=== PATIENT | female | born 1970 | race Caucasian/White ===

== ENCOUNTER 2017-06-24 23:26 | Emergency (ER) | payer SELFPAY ==
[2017-06-25 00:17] VITALS: TEMP 97.3; BMI 29.2
--- NOTE | 2017-06-25 03:55 | PDOC ---
History of Present Illness - History of Present Illness Initial Comments: 06/25/17 04:09 Patient is a 47 F (1 , 2 miscarriages), with no significant PMHx, who presents to the ED for headache 1 week. Patient states that she had a pounding headache for 1 week. Yesterday she reports worsening headache - concentrated on the front and right side. She also reports dizziness, and says she passed out in amish. She also reports that she hasn't had much of an appetite yesterday. She states she is currently menstruating. She denies fever. Allergies: penicillin PCP: hasn't seen a doctor for 2 years <Fransisca Camargo - Last Filed: 06/25/17 04:09> <Marion Cervantes - Last Filed: 06/25/17 07:14> - General Chief Complaint: Headache Stated Complaint: HEADACHE Time Seen by Provider: 06/25/17 02:01 Past History <Fransisca Camargo - Last Filed: 06/25/17 04:09> - Past Medical History COPD: No - Surgical History Abdominal Surgery: Yes - Immunization History Immunization Up to Date: Yes - Suicide/Smoking/Psychosocial Hx Smoking History: Never smoked Have you smoked in the past 12 months: No Information on smoking cessation initiated: No Hx Alcohol Use: No Drug/Substance Use Hx: No Substance Use Type: None <Marion Cervantes - Last Filed: 06/25/17 07:14> - Past Medical History Allergies/Adverse Reactions: Allergies Allergy/AdvReac Type Severity Reaction Status Date / Time Penicillins Allergy Intermediate Difficulty Verified 06/25/17 00:16 Breathing Home Medications: Ambulatory Orders NK [No Known Home Medication] 11/17/15 Review of Systems - Review of Systems Comments:: 06/25/17 04:10 GENERAL/CONSTITUTIONAL: No fever or chills. No weakness. HEAD, EYES, EARS, NOSE AND THROAT: No change in vision. No ear pain or discharge. No sore throat. CARDIOVASCULAR: No chest pain or shortness of breath. RESPIRATORY: No cough, wheezing, or hemoptysis. GASTROINTESTINAL: No nausea, vomiting, diarrhea or constipation. GENITOURINARY: No dysuria, frequency, or change in urination. MUSCULOSKELETAL: No joint or muscle swelling or pain. No neck or back pain. SKIN: No rash NEUROLOGIC: +headache, +vertigo, +loss of consciousness, no change in strength/ sensation. ENDOCRINE: No increased thirst. No abnormal weight change.+decreased appetite. HEMATOLOGIC/LYMPHATIC: No anemia, easy bleeding, or history of blood clots. ALLERGIC/IMMUNOLOGIC: No hives or skin allergy. <Fransisca Camargo - Last Filed: 06/25/17 04:09> *Physical Exam - Vital Signs Last Vital Signs Temp Pulse Resp BP Pulse Ox 97.3 F L 61 20 106/62 99 06/25/17 00:16 06/25/17 00:16 06/25/17 00:16 06/25/17 00:16 06/25/17 00:16 - Physical Exam Comments: 06/25/17 04:12 GENERAL: Awake, alert, and fully oriented, Right-sided front temporal headache. HEAD: No signs of trauma EYES: PERRLA, EOMI, sclera anicteric, conjunctiva clear ENT: Auricles normal inspection, hearing grossly normal, nares patent, oropharynx clear without exudates. Moist mucosa NECK: Normal ROM, supple, no lymphadenopathy, JVD, or masses LUNGS: Breath sounds equal, clear to auscultation bilaterally. No wheezes, and no crackles HEART: Regular rate and rhythm, normal S1 and S2, no murmurs, rubs or gallops ABDOMEN: Soft, nontender, normoactive bowel sounds. No guarding, no rebound. No masses EXTREMITIES: Normal range of motion, no edema. No clubbing or cyanosis. No cords, erythema, or tenderness NEUROLOGICAL: Cranial nerves II through XII grossly intact. Normal speech, normal gait SKIN: Warm, Dry, normal turgor, no rashes or lesions noted. <Fransisca Camargo - Last Filed: 06/25/17 04:09> - Vital Signs Last Vital Signs Temp Pulse Resp BP Pulse Ox 97.3 F L 61 20 106/62 99 06/25/17 00:16 06/25/17 00:16 06/25/17 00:16 06/25/17 00:16 06/25/17 00:16 <Marion Cervantes - Last Filed: 06/25/17 07:14> ED Treatment Course - LABORATORY CBC & Chemistry Diagram: 06/25/17 04:15 06/25/17 04:15 <Marion Cervantes Last Filed: 06/25/17 07:14> Medical Decision Making - Medical Decision Making 06/25/17 07:01 Pt comes with headache. Pt has normal labs; HCG negative. Head CT result pending. Pt has normal neuro exam and normal physical exam. 06/25/17 07:01 Day team can reeval patient and get a 2nd cardiac enzyme on her as she had a syncopal episode in [place] yesterday. <Marion Cervantes - Last Filed: 06/25/17 07:14> *DC/Admit/Observation/Transfer - Attestations Scribe Attestion: 06/25/17 04:14 Documentation prepared by Fransisca Camargo, acting as medical practice administrator for Marion Cervantes MD. <Fransisca Camargo - Last Filed: 06/25/17 04:09>
[2017-06-25] MEDS ORDERED: ACETAMINOPHEN 500 MG TABLET (FP) PO ONE (04:01)
[2017-06-25] MEDS ORDERED: METOCLOPRAMIDE HCL INJECTION 10 MG/2 ML VIAL IVPUSH ONE (04:02)
[2017-06-25] MEDS ORDERED: SODIUM CHLORIDE 0.9% 500 ML INFUS.BAG IV ONE (04:05)
[2017-06-25 04:36] LABS: BASO % 0.6 % (0-2.0); HEMOGLOBIN 12.4 GM/dL (10.7-15.3); LYMPH % 36.1 % (8-40); MCH 29.6 pg (25.7-33.7); MCHC 33.5 g/dl (32.0-36.0); MEAN CELL VOLUME 88.3 fl (80-96); MEAN PLT VOLUME 9.3 fl (7.5-11.1); MONO % 7.1 % (3.8-10.2); NEUT % 54.2 % (42.8-82.8); PLATELET COUNT 204 K/MM3 (134-434); RBC 4.19 M/mm3 (3.60-5.2); RDW 14.1 % (11.6-15.6)
[2017-06-25 05:02] LABS: ALBUMIN 3.4 g/dl (3.4-5.0); ANION GAP 7 (8-16); BILIRUBIN,TOTAL 0.2 mg/dL (0.2-1.0); BLOOD UREA NITROGEN 18 mg/dL (7-18); CALCIUM 8.6 mg/dL (8.5-10.1); CHLORIDE 108 mmol/L (98-107); CO2 27 mmol/L (21-32); CREATININE 0.8 mg/dL (0.55-1.02); GLUCOSE,RANDOM 92 mg/dL (74-106); POTASSIUM 3.9 mmol/L (3.5-5.1); SGOT/AST 20 U/L (15-37); SGPT/ALT 24 U/L (12-78); SODIUM 142 mmol/L (136-145); TOT PROT 6.4 g/dl (6.4-8.2)
[2017-06-25 05:05] LABS: ALK PHOS 142 U/L (45-117)
[2017-06-25 05:10] LABS: INR 1.02 (0.82-1.09); PROTHROMBIN TIME (PATIENT) 11.5 SEC (9.98-11.88)
--- NOTE | 2017-06-25 07:40 | PDOC ---
*Physical Exam - Vital Signs Last Vital Signs Temp Pulse Resp BP Pulse Ox 97.3 F L 61 20 106/62 99 06/25/17 00:16 06/25/17 00:16 06/25/17 00:16 06/25/17 00:16 06/25/17 00:16 Heart Score/ECG Review - ECG Impressions Comment:: 06/25/17 12:45 Twelve-lead EKG was performed and reviewed by me. There is normal sinus rhythm with a rate of 52 The axis is normal. The intervals are normal. There is normal R wave progression There are no ST or T wave abnormalities. Impression: Normal twelve-lead EKG ED Treatment Course - LABORATORY CBC & Chemistry Diagram: 06/25/17 04:15 06/25/17 04:15 - ADDITIONAL ORDERS Additional order review: Laboratory Results 06/25/17 06/25/17 06/25/17 04:15 04:15 04:15 PT with INR 11.50 INR 1.02 PTT (Actin FS) Sodium 142 Potassium 3.9 Chloride 108 H Carbon Dioxide 27 Anion Gap 7 L BUN 18 Creatinine 0.8 Creat Clearance w eGFR > 60 Random Glucose 92 Calcium 8.6 Total Bilirubin 0.2 D AST 20 ALT 24 Alkaline Phosphatase 142 H Creatine Kinase 96 Troponin I < 0.02 Total Protein 6.4 Albumin 3.4 Serum , Qual Negative 06/25/17 04:15 PT with INR INR PTT (Actin FS) 27.2 Sodium Potassium Chloride Carbon Dioxide Anion Gap BUN Creatinine Creat Clearance w eGFR Random Glucose Calcium Total Bilirubin AST ALT Alkaline Phosphatase Creatine Kinase Troponin I Total Protein Albumin Serum , Qual 06/25/17 04:15 RBC 4.19 MCV 88.3 MCHC 33.5 RDW 14.1 MPV 9.3 Neutrophils % 54.2 Lymphocytes % 36.1 Monocytes % 7.1 Eosinophils % 2.0 Basophils % 0.6 - Medications Given in the ED: ED Medications Discontinued Medications Generic Name Dose Route Start Last Admin Trade Name Freq PRN Reason Stop Dose Admin Acetaminophen 975 mg 06/25/17 04:01 06/25/17 04:32 Tylenol - PO 06/25/17 04:02 975 mg ONCE ONE Administration Diphenhydramine HCl 50 mg 06/25/17 04:02 06/25/17 04:32 Benadryl Injection - IVPB 06/25/17 04:03 50 mg ONCE ONE Administration Metoclopramide HCl 10 mg 06/25/17 04:02 06/25/17 04:32 Reglan Injection - IVPUSH 06/25/17 04:03 10 mg ONCE ONE Administration Sodium Chloride 1,000 ml 06/25/17 04:05 06/25/17 04:21 Normal Saline - IV 06/25/17 04:06 1,000 ml ONCE ONE Administration Medical Decision Making - Medical Decision Making 06/25/17 11:32 Pt signed out to me from Dr. Helen marquez 2nd set and ct head Pt maddy peña resolution of headache pt notes that while she was in [place], she had syncopized, but denies any associated pain prior to her syncopal episode no vision changes, numbness/tingling/weakness, chest pain, neck pain, back pain. 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 I answered all of the patient's questions. The patient was satisfied with the care received and felt comfortable with the discharge plan and treatment plan. The patient will call their primary care physician within 24 hours to arrange follow-up and will return to the Emergency Department with any new, persistent or worsening symptoms. *DC/Admit/Observation/Transfer Diagnosis at time of Disposition: Tension headache Syncope Qualifiers: Syncope type: unspecified Qualified Code(s): R55 - Syncope and collapse - Discharge Dispostion Disposition: HOME Condition at time of disposition: Improved Admit: No - Referrals Referrals: Zita Salinas [Non Staff, Medical] - - Patient Instructions Printed Discharge Instructions: DI for Syncope in Adults (Fainting), DI for Hormonal and Tension Headaches Additional Instructions: Regrese al departamento de emergencia de inmediato con CUALQUIER sntoma nuevo, persistente o que empeore. DEBE llamar y hacer un seguimiento con anthony mdico maana para ryan mayor evaluaci n de jennifer sntomas. Los resultados fueron discutidos con usted. Asegrese de que anthony mdico revise los resultados de anthony evaluacin de emergencia. Si tuvo alguna radiografa remington anthony visita, fue sofi de manera preliminar por m mismo, un radilogo la revisar y si hay algn hallazgo adicional, lo llamaremos. Print Language: SYRIAC - Post Discharge Activity
[2017-06-25 15:01] VITALS: BP 110/59; PULSE 65
--- NOTE | 2017-06-25 15:23 | EKG ---
Test Reason : Blood Pressure : / mmHG Vent. Rate : 052 BPM Atrial Rate : 052 BPM P-R Int : 126 ms QRS Dur : 084 ms QT Int : 456 ms P-R-T Axes : 054 059 048 degrees QTc Int : 424 ms SINUS BRADYCARDIA POSSIBLE LEFT ATRIAL ENLARGEMENT BORDERLINE ECG WHEN COMPARED WITH ECG OF 17-NOV-2015 12:20, NO SIGNIFICANT CHANGE WAS FOUND Confirmed by Boris Branch ([id number]) on 06/25/2017 3:23:02 PM Referred By: Confirmed By:Boris Branch
--- NOTE | 2017-06-27 09:15 | PDOC ---
Patient Follow-up (Call Back) - Post ED Follow - Up Condition at time of discharge: Improved Disposition at time of original discharge: HOME Reason for Call Back: Radiology (Small tissue lesion on head CT, pt needs non- emergent MRI Called pt and l/m to call back)
--- NOTE | 2017-06-28 11:04 | PDOC ---
Patient Follow-up (Call Back) - Post ED Follow - Up Condition at time of discharge: Improved Disposition at time of original discharge: HOME Reason for Call Back: Radiology (Called pt this am and informed her of CT results, will f/u with her PMD for MRI. Feels well)
== END 2017-06-25 19:18 | disposition home or self-care (01) ==
LOC: JER 23:26
PROC: 3E033GC Introduction of Other Therapeutic Substance into Peripheral Vein, Percutaneous Approach (ICD-10-PCS; principal; 2017-06-24)
PROC: 3E033GC Introduction of Other Therapeutic Substance into Peripheral Vein, Percutaneous Approach (ICD-10-PCS; 2017-06-24)
DX: G44.209 Tension-type headache, unspecified, not intractable (principal); R55 Syncope and collapse
CPT/HCPCS: 36415; 70450-TC; 80053; 82550; 84484; 84703; 85025; 85610; 85730; 93005; 93010; 99284-25

== ENCOUNTER 2018-06-25 13:43 | Emergency (ER) | payer OTHER ==
[2018-06-25 13:50] VITALS: BP 112/57; PULSE 61; TEMP 98.3; BMI 31.2
[2018-06-25] MEDS ORDERED: KETOROLAC TROMETHAMINE 60 MG/2 ML VIAL ONE (14:28)
[2018-06-25] MEDS ORDERED: KETOROLAC TROMETHAMINE 60 MG/2 ML VIAL IM ONE (14:29)
--- NOTE | 2018-06-25 14:36 | PDOC ---
History of Present Illness - General Chief Complaint: Pain Stated Complaint: PAIN Time Seen by Provider: 06/25/18 14:10 History Source: Patient Exam Limitations: No Limitations - History of Present Illness Initial Comments: 06/25/18 14:34 Patient states has suffered prior neck pain with scalp pain associated on and off for over a month. Has never taken any medication or sought any attention for evaluation for same. Denies fever, denies any injury however Works at a [employer] performs heavy lifting and strenuous activity daily. Denies any other neurologic symptoms including dizziness, weakness, nausea vomiting or history of headache pain. Severity: reports: mild, moderate Pain Location: reports: head, neck Method of Injury: Yes: unknown Modifying Factors: improves with: None Loss of Consciousness: no loss of consciousness Associated Symptoms (Fall): headache Past History - Travel Traveled outside of the country in the last 30 days: No Close contact w/someone who was outside of country & ill: No - Past Medical History Allergies/Adverse Reactions: Allergies Allergy/AdvReac Type Severity Reaction Status Date / Time Penicillins Allergy Intermediate Difficulty Verified 06/25/18 13:48 Breathing Home Medications: Ambulatory Orders Cyclobenzaprine HCl 10 mg PO Q8H PRN #14 tablet 06/25/18 Naproxen [Naprosyn -] 500 mg PO BID #30 tablet 06/25/18 COPD: No - Surgical History Abdominal Surgery: Yes - Immunization History Immunization Up to Date: Yes - Suicide/Smoking/Psychosocial Hx Smoking History: Never smoked Have you smoked in the past 12 months: No Information on smoking cessation initiated: No Hx Alcohol Use: No Drug/Substance Use Hx: No Substance Use Type: None Review of Systems - Review of Systems Able to Perform ROS?: Yes Is the patient limited Latvian proficient: Yes Constitutional: Yes: Symptoms Reported, See HPI, Malaise HEENTM: Yes: See HPI. No: Symptoms Reported Respiratory: Yes: See HPI. No: Symptoms reported, Cough Cardiac (ROS): No: Symptoms Reported Neurological: Yes: Symptoms reported, See HPI, Headache Psychiatric: No: Anxiety All Other Systems: Reviewed and Negative *Physical Exam - Vital Signs Last Vital Signs Temp Pulse Resp BP Pulse Ox 98.3 F 61 18 112/57 L 97 06/25/18 13:48 06/25/18 13:48 06/25/18 13:48 06/25/18 13:48 06/25/18 13:48 - Physical Exam General Appearance: Yes: Nourished, Appropriately Dressed, Apparent Distress, Mild Distress, Moderate Distress HEENT: positive: ANTONY, Normal ENT Inspection, TMs Normal, Pharynx Normal Neck: positive: Tender, Supple (with tights tense musculature on the paravertebral spinous muscles sternocleidomastoid. Worse on the right than the left and reproducible scalp/headache pain with pressure at occiput insertion sites. Patient's range of motion is limited secondary to the spasm and tenderness.). negative: Lymphadenopathy (R), Lymphadenopathy (L) Respiratory/Chest: positive: Lungs Clear, Normal Breath Sounds Gastrointestinal/Abdominal: positive: Soft. negative: Tender Musculoskeletal: positive: Normal Inspection. negative: Vertebral Tenderness Extremity: positive: Normal Capillary Refill Integumentary: positive: Normal Color, Dry, Pale Neurologic: positive: rough rice grader II-XII NML intact, Fully Oriented, Alert, Normal Mood/ Affect, Normal Response, Motor Strength 5/5 Moderate Sedation - Procedure Monitoring Vital Signs: Procedure Monitoring Vital Signs Temperature 98.3 F 06/25/18 13:48 Pulse Rate 61 06/25/18 13:48 Respiratory Rate 18 06/25/18 13:48 Blood Pressure 112/57 L 06/25/18 13:48 O2 Sat by Pulse Oximetry (%) 97 06/25/18 13:48 Progress Note - Progress Note Progress Note: Tension headache/muscle spasm to neck with wraparound pain. We'll treat with NSAIDs and cyclobenzaprine *DC/Admit/Observation/Transfer Diagnosis at time of Disposition: Tension headache - Discharge Dispostion Disposition: HOME Condition at time of disposition: Stable Decision to Admit order: No - Referrals Referrals: Zita Salinas [Primary Care Provider] - - Patient Instructions Printed Discharge Instructions: DI for Hormonal and Tension Headaches Additional Instructions: Rest, no heavy lifting or exercise until pain is resolved Hot soaks to neck and low back as often as possible/hot showers or Jacuzzis No massage or therapy until spasm is gone Continue Naprosyn 500 mg tablet, 1 tablet every 8 hours for the next 3 days then as needed for pain and swelling Cyclobenzaprine 1-10mg every 8 hours as needed for spasm If not significant improvement within 24 hours with medication and rest regime, followup with private physician for change in medications and /or therapy. - Post Discharge Activity Forms/Work/School Notes: Back to Work
== END 2018-06-25 14:42 | disposition home or self-care (01) ==
LOC: JER 13:43 → JERFT 13:43
PROC: 3E0233Z Introduction of Anti-inflammatory into Muscle, Percutaneous Approach (ICD-10-PCS; principal; 2018-06-25)
DX: M62.830 Muscle spasm of back (principal); G44.209 Tension-type headache, unspecified, not intractable
CPT/HCPCS: 96372; 99281-25

== ENCOUNTER 2020-08-22 23:45 | Inpatient (IN) | payer OTHER ==
[2020-08-23] MEDS ORDERED: DEXAMETHASONE SOD PHOSPHATE 10 MG/1 ML VIAL IVPUSH ONE (01:07)
[2020-08-23] MEDS ORDERED: DOXYCYCLINE HYCLATE 100 MG CAPSULE PO ONE ×2 (01:09→01:51)
[2020-08-23] MEDS ORDERED: predniSONE 20 MG TABLET (UD) PO ONE (01:45)
[2020-08-23] MEDS ORDERED: valACYclovir HCL 1000 MG TABLET PO ONE (01:46)
[2020-08-23] MEDS ORDERED: valACYclovir HCL 500 MG TABLET (FP) ONE ×2 (01:50→21:17)
[2020-08-23] MEDS ORDERED: predniSONE 20 MG TABLET (UD) ONE (01:50)
[2020-08-23 02:19] LABS: BASO % 0.5 % (0-2.0); EOS % 2.4 % (0-4.5); HEMATOCRIT 40.2 % (32.4-45.2); HEMOGLOBIN 13.3 GM/dL (10.7-15.3); LYMPH % 34.2 % (8-40); MCH 29.6 pg (25.7-33.7); MCHC 33.1 g/dl (32.0-36.0); MEAN CELL VOLUME 89.5 fl (80-96); MONO % 6.9 % (3.8-10.2); PLATELET COUNT 230 K/MM3 (134-434); RBC 4.48 M/mm3 (3.60-5.2); RDW 13.7 % (11.6-15.6); WHITE BLOOD COUNT 8.5 K/mm3 (4.0-10.0)
[2020-08-23] MEDS ORDERED: KETOROLAC TROMETHAMINE 30 MG/1 ML VIAL IVPUSH ONE (02:29)
[2020-08-23 02:39] LABS: CHLORIDE 105 mmol/L (98-107); SODIUM 139 mmol/L (136-145)
[2020-08-23 02:41] LABS: BLOOD UREA NITROGEN 18.8 mg/dL (7-18); CALCIUM 9.2 mg/dL (8.5-10.1)
[2020-08-23 02:42] LABS: ALBUMIN 3.8 g/dl (3.4-5.0); ANION GAP 4 MMOL/L (8-16); CO2 30 mmol/L (21-32); GLUCOSE,RANDOM 112 mg/dL (74-106)
[2020-08-23 02:45] LABS: CREATININE 0.7 mg/dL (0.55-1.3); SGOT/AST 61 U/L (15-37); SGPT/ALT 119 U/L (13-61)
[2020-08-23 02:46] LABS: BILIRUBIN,TOTAL 0.2 mg/dL (0.2-1); TOT PROT 7.6 g/dl (6.4-8.2)
[2020-08-23 02:48] LABS: ALK PHOS 151 U/L (45-117)
[2020-08-23] MEDS ORDERED: KETOROLAC TROMETHAMINE 15 MG/ML VIAL IVPUSH ONE (09:37)
[2020-08-23] MEDS ORDERED: KETOROLAC TROMETHAMINE 30 MG/1 ML VIAL ONE (09:38)
[2020-08-23 11:54] VITALS: BMI 38.0
[2020-08-23] MEDS: HEPARIN NA (PORCINE) 5,000 UNITS/ML 1ML VIAL SQ SCH (21:20)
[2020-08-23] MEDS ORDERED: valACYclovir HCL 1000 MG TABLET PO SCH (22:00)
[2020-08-24] MEDS: valACYclovir HCL 500 MG TABLET (FP) PO SCH ×2 (06:00→13:07)
[2020-08-24 08:57] LABS: HEMATOCRIT 37.6 % (32.4-45.2); HEMOGLOBIN 12.9 GM/dL (10.7-15.3); MCH 30.5 pg (25.7-33.7); MCHC 34.2 g/dl (32.0-36.0); MEAN CELL VOLUME 89.1 fl (80-96); MEAN PLT VOLUME 9.1 fl (7.5-11.1); PLATELET COUNT 210 K/MM3 (134-434); RBC 4.22 M/mm3 (3.60-5.2); RDW 13.7 % (11.6-15.6); WHITE BLOOD COUNT 9.5 K/mm3 (4.0-10.0)
[2020-08-24] MEDS: HEPARIN NA (PORCINE) 5,000 UNITS/ML 1ML VIAL SQ SCH ×2 (09:01→22:03)
[2020-08-24 09:15] LABS: POTASSIUM 3.9 mmol/L (3.5-5.1)
[2020-08-24 09:17] LABS: CALCIUM 8.5 mg/dL (8.5-10.1)
[2020-08-24 09:18] LABS: ALBUMIN 3.4 g/dl (3.4-5.0); BLOOD UREA NITROGEN 28.9 mg/dL (7-18)
[2020-08-24 09:22] LABS: BILIRUBIN,TOTAL 0.3 mg/dL (0.2-1)
[2020-08-24 09:23] LABS: TOT PROT 6.8 g/dl (6.4-8.2)
[2020-08-24] MEDS ORDERED: predniSONE 20 MG TABLET (UD) PO SCH (10:00)
[2020-08-24] MEDS: TETRAHYDROZOLINE HCL EYE DROPS OU PRN (22:03)
[2020-08-25] MEDS: ARTIFICIAL TEARS (POLYVINYL ALCOHOL) OPTH DROPS OS PRN ×3 (05:44→22:04)
[2020-08-25] MEDS: HEPARIN NA (PORCINE) 5,000 UNITS/ML 1ML VIAL SQ SCH ×2 (09:14→22:05)
[2020-08-25] MEDS: predniSONE 20 MG TABLET (UD) PO SCH (09:16)
[2020-08-25 09:42] LABS: HEMATOCRIT 38.8 % (32.4-45.2); HEMOGLOBIN 13.1 GM/dL (10.7-15.3); MCH 30.2 pg (25.7-33.7); MCHC 33.8 g/dl (32.0-36.0); MEAN CELL VOLUME 89.4 fl (80-96); MEAN PLT VOLUME 9.1 fl (7.5-11.1); PLATELET COUNT 238 K/MM3 (134-434); RBC 4.34 M/mm3 (3.60-5.2); RDW 13.8 % (11.6-15.6); WHITE BLOOD COUNT 13.7 K/mm3 (4.0-10.0)
[2020-08-25 10:07] LABS: POTASSIUM 3.8 mmol/L (3.5-5.1)
[2020-08-25 10:16] LABS: CALCIUM 8.8 mg/dL (8.5-10.1)
[2020-08-25 10:17] LABS: ALBUMIN 3.5 g/dl (3.4-5.0); BLOOD UREA NITROGEN 22.7 mg/dL (7-18)
[2020-08-25 10:21] LABS: BILIRUBIN,TOTAL 0.3 mg/dL (0.2-1)
[2020-08-25] MEDS: TETRAHYDROZOLINE HCL EYE DROPS OU PRN (14:56)
[2020-08-25] MEDS ORDERED: ACETAMINOPHEN 325 MG TABLET (FP) PO ONE (22:17)
[2020-08-26] MEDS: predniSONE 20 MG TABLET (UD) PO SCH (10:00)
[2020-08-26] MEDS ORDERED: POLYETHYLENE GLYCOL 3350 119 GM BTL PO SCH (10:00)
[2020-08-26] MEDS: HEPARIN NA (PORCINE) 5,000 UNITS/ML 1ML VIAL SQ SCH (10:01)
[2020-08-26] MEDS: TETRAHYDROZOLINE HCL EYE DROPS OU PRN (10:06)
[2020-08-26] MEDS: ARTIFICIAL TEARS (POLYVINYL ALCOHOL) OPTH DROPS OS PRN (10:06)
[2020-08-26 10:38] LABS: BASO % 0.4 % (0-2.0); EOS % 0.5 % (0-4.5); HEMATOCRIT 39.5 % (32.4-45.2); HEMOGLOBIN 13.4 GM/dL (10.7-15.3); LYMPH % 42.6 % (8-40); MEAN CELL VOLUME 88.5 fl (80-96); MONO % 4.4 % (3.8-10.2); NEUT % 52.1 % (42.8-82.8); PLATELET COUNT 243 K/MM3 (134-434); RBC 4.46 M/mm3 (3.60-5.2); RDW 13.6 % (11.6-15.6); WHITE BLOOD COUNT 14.2 K/mm3 (4.0-10.0)
[2020-08-26 11:00] LABS: ALBUMIN 3.6 g/dl (3.4-5.0)
[2020-08-26 11:02] LABS: CREATININE 0.9 mg/dL (0.55-1.3)
[2020-08-26 11:03] LABS: POTASSIUM 3.9 mmol/L (3.5-5.1)
[2020-08-26 11:05] LABS: BILIRUBIN,TOTAL 0.3 mg/dL (0.2-1); TOT PROT 7.2 g/dl (6.4-8.2)
[2020-08-26] MEDS ORDERED: PANTOPRAZOLE SODIUM 40 MG VIAL IVPUSH SCH (11:15)
[2020-08-26 12:15] VITALS: BP 105/63; PULSE 58; TEMP 98.3
[2020-08-27] MEDS ORDERED: predniSONE 20 MG TABLET (UD) PO SCH (10:00)
[2020-08-27 13:08] LABS: HEP B CORE AB, TOT Negative (Negative)
[2020-08-30] MEDS ORDERED: predniSONE 20 MG TABLET (UD) PO SCH (10:00)
== END 2020-08-26 13:37 | disposition home or self-care (01) | DRG 48 ==
LOC: JER 23:45 → JERBED 08-23 01:09 → J6S 08-23 11:14
PROVIDERS: ADMIT Family Medicine; ATTEND Family Medicine
DX: G51.0 Bell's palsy (principal); R94.5 Abnormal results of liver function studies; K43.2 Incisional hernia without obstruction or gangrene; R10.9 Unspecified abdominal pain; K76.0 Fatty (change of) liver, not elsewhere classified
CPT/HCPCS: 36415; 70450-TC; 71045-TC-FY; 76705-TC; 80053; 82550; 82977; 83690; 84443; 84484; 85025; 85027; 86618; 86704; 86706; 86707; 86708; 86709; 86803; 87340; 93005; 93010; 99285-25; C9803; J1644; U0003

== ENCOUNTER 2021-01-13 20:22 | Emergency (ER) | payer OTHER ==
[2021-01-13 20:57] VITALS: BP 118/72; PULSE 72; TEMP 98.1; BMI 35.5
[2021-01-13] MEDS ORDERED: predniSONE 20 MG TABLET (UD) PO ONE (22:15)
[2021-01-13] MEDS ORDERED: diphenhydrAMINE HCL 25 MG CAPSULE (FP) PO ONE ×2 (22:15→22:24)
[2021-01-13] MEDS ORDERED: predniSONE 20 MG TABLET (UD) ONE (22:25)
== END 2021-01-13 22:40 | disposition home or self-care (01) ==
LOC: JERFT 20:22
DX: L23.89 Allergic contact dermatitis due to other agents (principal)
CPT/HCPCS: 99283-25

== ENCOUNTER 2021-01-21 00:52 | Emergency (ER) | payer OTHER ==
[2021-01-21 01:13] VITALS: BP 115/77; PULSE 69; TEMP 97.7; BMI 34.4
[2021-01-21] MEDS ORDERED: FAMOTIDINE 10 MG TABLET PO ONE (02:38)
[2021-01-21] MEDS ORDERED: DEXAMETHASONE 0.5 MG TABLET PO ONE (02:38)
[2021-01-21] MEDS ORDERED: DEXAMETHASONE 4 MG TABLET (FP) ONE (02:52)
[2021-01-21] MEDS ORDERED: FAMOTIDINE 20 MG TABLET ONE (02:52)
== END 2021-01-21 03:00 | disposition home or self-care (01) ==
LOC: JER 00:52
DX: R21 Rash and other nonspecific skin eruption (principal)
CPT/HCPCS: 99283-25; J8540

== ENCOUNTER 2022-08-10 14:15 | Emergency (ER) | payer OTHER ==
[2022-08-10 14:22] VITALS: RESP 18; TEMP 98.1; BMI 33.2
[2022-08-10] MEDS ORDERED: LIDOCAINE 5% TOPICAL PATCH TP ONE (17:56)
[2022-08-10] MEDS ORDERED: ACETAMINOPHEN 500 MG TABLET (FP) PO ONE (17:56)
[2022-08-10] MEDS ORDERED: KETOROLAC TROMETHAMINE 30 MG/1 ML VIAL IM ONE (17:56)
[2022-08-10] MEDS ORDERED: METHOCARBAMOL 500 MG TABLET PO ONE (17:56)
[2022-08-10] MEDS ORDERED: LIDOCAINE 5% TOPICAL PATCH ONE (18:16)
[2022-08-10] MEDS ORDERED: METHOCARBAMOL 500 MG TABLET ONE (18:17)
[2022-08-10] MEDS ORDERED: KETOROLAC TROMETHAMINE 30 MG/1 ML VIAL ONE (18:17)
[2022-08-10] MEDS ORDERED: ACETAMINOPHEN 500 MG TABLET (FP) ONE (18:17)
[2022-08-10 20:38] VITALS: BP 102/61; PULSE 61
[2022-08-10] MEDS ORDERED: LIDOCAINE PATCH REMOVAL MC SCH (22:00)
== END 2022-08-10 21:21 | disposition home or self-care (01) ==
LOC: JER 14:15
PROC: 3E0233Z Introduction of Anti-inflammatory into Muscle, Percutaneous Approach (ICD-10-PCS; principal; 2022-08-10)
DX: M54.50 Low back pain, unspecified (principal)
CPT/HCPCS: 93005; 93010; 99284-25